=== PATIENT | male | born 1960 | race Caucasian/White ===

== ENCOUNTER 2017-08-08 08:52 | Outpatient (CLI) | payer OTHER ==
[2017-08-08 09:19] LABS: BASOPHILS % 0.6 (0.0-1.5); EOSINOPHILS % 0.9 % (0.0-6.8); MEAN CORPUSCULAR HEMOGLOBIN 32.4 pg (28.0-34.0); MEAN CORPUSCULAR VOLUME 95.2 fl (80.0-100.0); MONOCYTES % 4.8 % (0.0-11.0); NEUTROPHILS # 7.3 # k/uL (1.4-7.7)
[2017-08-08 10:04] LABS: eGFR (African) > 60; eGFR (Non-African) > 60
== END 2017-08-08 08:53 ==
LOC: LAB 08:52
PROVIDERS: ATTEND Family Medicine
DX: Z00.00 Encounter for general adult medical examination without abnormal findings (principal); N52.9 Male erectile dysfunction, unspecified
CPT/HCPCS: 36415; 80053; 80061; 84403; 85025

== ENCOUNTER 2017-10-15 20:30 | Emergency (ER) | payer OTHER ==
--- NOTE | 2017-11-26 13:12 | ED Physician Documentation ---
General Adult - HISTORIAN Historian: patient - HPI Chief Complaint: Ear Complaints - PAST HX Allergies/Adverse Reactions: Allergies Allergy/AdvReac Type Severity Reaction Status Date / Time No Known Drug Allergies Allergy Unverified 08/07/17 10:53 Discharge Referrals: Adolfo Garcias MD [Primary Care Provider] - 2 Days
== END 2017-10-15 20:35 | disposition left against medical advice (07) ==
LOC: ED 20:30
DX: Z53.21 Procedure and treatment not carried out due to patient leaving prior to being seen by health care provider (principal)

== ENCOUNTER 2019-04-06 08:43 | Emergency (ER) | payer SELFPAY ==
--- NOTE | 2019-04-06 08:50 | ED Physician Documentation ---
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 He has less swelling today then he did at this time, although today he states he was at work and felt a pop in his right knee and he was instantly inable to bear weight( he did walk into the room today without incident) He did take "asprin" this am and he has had some mild pain relief.) - ROS CONST: no problems MS/SKIN/LYMPH: none - PAST HX Past History: COPD Surgeries/Procedures: other (hernia ) Immunizations: UTD Allergies/Adverse Reactions: Allergies Allergy/AdvReac Type Severity Reaction Status Date / Time No Known Drug Allergies Allergy Verified 04/06/19 08:58 Home Medications: Ambulatory Orders Medication Instructions Recorded NK 04/06/19 - SOCIAL HX Smoking History: cigarettes Alcohol Use: none Drug Use: none - FAMILY HX Family History: No - REVIEWED ASSESSMENTS Nursing Assessment Reviewed: Yes Vitals Reviewed: Yes ED Results Lab/Radiology - Radiology Radiology Impressions: Exam: Right knee. History: Pain. AP, lateral and sunrise view of the right knee are submitted. Sclerosis and spurring at the knee joint is noted. Sclerosis spurring at the femoral patellar articulation is noted. No acute fracture is seen. No soft tissue abnormalities are identified. Impression: Degenerative changes. Electronically signed on Apr 06, 2019 9:18:11 AM CDT by: Manav Grijalva General Adult Physical Exam - PHYSICAL EXAM GENERAL APPEARANCE: no distress EENT: eye inspection normal, no signs of dehydration NECK: normal inspection RESPIRATORY: no resp distress, chest non-tender, breath sounds normal CVS: reg rate & rhythm, heart sounds normal SKIN: warm/dry, normal color EXTREMITIES: non-tender, other (mild pain with palpation at the very superior patella - no obvious injury - no bruise - no swelling. FROM pulses + able to bear weight with no pain ) NEURO: oriented X3 Discharge Clincal Impression: Right knee pain Qualifiers: Chronicity: acute Qualified Code(s): M25.561 - Pain in right knee Referrals: Adolfo Garcias MD [Primary Care Provider] - 2 Days Comments: 1. OTC meds as directed as needed for pain 2. Ice if needed for comfort 3. Follow up with PCP in 2-4 days for follow up in knee 4. Return to ER for any increasing concerns Condition: Stable Disposition: 01 HOME, SELF-CARE Decision to Admit: NO Date of Decison to Admit: 04/06/19 Decision Time: 09:21
[2019-04-06] MEDS ORDERED: ACETAMINOPHEN 325 MG TABLET PO ONE (09:09)
[2019-04-06 09:12] VITALS: BP 139/50
--- NOTE | 2019-04-06 09:25 | Diagnostic Imaging Report ---
JILL BRIONES [facility] [address] [facility].[address] [address] Report Submission Date: Apr 06, 2019 9:18:11 AM CDT Patient Study Name: SYLWIA RODRÍGUEZ Date: Apr 06, 2019 9:01:43 AM CDT Modality Type: DX Gender: M Description: KNEE 3 VIEWS : 60 Institution: [facility] Physician: JILL BRIONES Exam: Right knee. History: Pain. AP, lateral and sunrise view of the right knee are submitted. Sclerosis and spurring at the knee joint is noted. Sclerosis spurring at the femoral patellar articulation is noted. No acute fracture is seen. No soft tissue abnormalities are identified. Impression: Degenerative changes. Electronically signed on Apr 06, 2019 9:18:11 AM CDT by: Manav ROBLEDO
== END 2019-04-06 09:22 | disposition home or self-care (01) ==
LOC: ED 08:43
DX: M25.561 Pain in right knee (principal)
CPT/HCPCS: 73562; 99283; 99284